=== PATIENT | male | born 1985 | race Hispanic/Latino ===

== ENCOUNTER 2017-04-21 09:47 | Emergency (ER) | payer OTHER ==
[2017-04-21] MEDS ORDERED: Ondansetron ODT 4 MG TAB ONE (10:02)
[2017-04-21] MEDS ORDERED: Ketorolac Tromethamine 60 MG/2 ML VIAL ONE (10:02)
== END 2017-04-21 10:38 | disposition home or self-care (01) ==
LOC: NAV ERS 09:47
DX: J11.1 Influenza due to unidentified influenza virus with other respiratory manifestations (principal)
CPT/HCPCS: 96372; J1885; Q0162

== ENCOUNTER 2023-08-21 11:29 | Emergency (ER) | payer OTHER ==
[2023-08-21] MEDS ORDERED: Lidocaine 1% (PF) 30 ML VIAL ONE (11:54)
[2023-08-21] MEDS ORDERED: Bacitracin 1 PK ONE (13:14)
== END 2023-08-21 13:24 | disposition home or self-care (01) ==
LOC: NAV ERS 11:29
DX: S61.215A Laceration without foreign body of left ring finger without damage to nail, initial encounter (principal); S61.213A Laceration without foreign body of left middle finger without damage to nail, initial encounter; F17.210 Nicotine dependence, cigarettes, uncomplicated; I10 Essential (primary) hypertension; W26.8XXA Contact with other sharp object(s), not elsewhere classified, initial encounter
CPT/HCPCS: 12002; 99282; J2001